=== PATIENT | female | born 1995 | race American Indian/Alaskan Native ===

== ENCOUNTER 2017-06-07 05:44 | Outpatient (CLI) | payer MEDICAID ==
[2017-06-07] MEDS ORDERED: LACTATED RINGERS 500 ML IV ONE (06:12)
[2017-06-07 06:42] LABS: Bacteria,Urine 1+ /HPF (Negative); Bilirubin,Urine NEG (Negative); Blood,Urine NEG (Negative); Ketones,Urine NEG (Negative); Leukocyte Esterase,Urine TR (Negative); Mucus,Urine FEW /HPF; Nitrite,Urine NEG (Negative); Protein,Urine <15 mg/dL mg/dL (Negative); Urobilinogen,Urine < 2.0 mg/dL (<2.0)
[2017-06-07] MEDS ORDERED: VISTARIL PO ONE (06:59)
[2017-06-07] MEDS ORDERED: TYLENOL PO ONE (07:09)
== END 2017-06-07 07:26 | disposition home or self-care (01) ==
LOC: TRG 05:44
PROVIDERS: ATTEND Obstetrics & Gynecology
DX: O47.03 False labor before 37 completed weeks of gestation, third trimester (principal); Z3A.36 36 weeks gestation of pregnancy
CPT/HCPCS: 59025; 81001

== ENCOUNTER 2017-06-16 21:17 | Outpatient (CLI) | payer MEDICAID ==
[2017-06-16 21:49] VITALS: BP 116/64
[2017-06-16] MEDS ORDERED: TYLENOL PO ONE (22:06)
[2017-06-16] MEDS ORDERED: VISTARIL PO ONE (22:07)
== END 2017-06-16 22:30 | disposition home or self-care (01) ==
LOC: TRG 21:17
PROVIDERS: ATTEND Obstetrics & Gynecology
DX: O47.1 False labor at or after 37 completed weeks of gestation (principal); Z3A.37 37 weeks gestation of pregnancy
CPT/HCPCS: 59025; Q0177

== ENCOUNTER 2017-06-27 04:04 | Inpatient (IN) | payer MEDICAID ==
[2017-06-27] MEDS ORDERED: LACTATED RINGERS 1,000 ML ONE (04:12)
[2017-06-27] MEDS ORDERED: SUBLIMAZE IV PRN ×2 (04:40→04:51)
[2017-06-27] MEDS ORDERED: PITOCin/NS 20 UNIT/1000ML DRIP 20,000 MILLIUNITS/1,000 ML BAG IV ONE (04:46)
[2017-06-27] MEDS ORDERED: BRETHINE IVP PRN (04:51)
[2017-06-27] MEDS ORDERED: NUBAIN IV PRN (04:51)
[2017-06-27] MEDS ORDERED: POLYCILLIN/NS 2 GM/100 ML 2 GM/100 ML BAG IV ONE (04:51)
[2017-06-27] MEDS ORDERED: ePHEDrine SULFATE IV PRN (04:51)
[2017-06-27] MEDS ORDERED: STADOL IV PRN (04:51)
[2017-06-27] MEDS ORDERED: XYLOCAINE 2% INFILTRATI ONE (04:51)
[2017-06-27] MEDS ORDERED: BRETHINE SUB-Q PRN (04:51)
[2017-06-27] MEDS ORDERED: MINERAL OIL PO PRN (04:51)
[2017-06-27] MEDS ORDERED: SUBLIMAZE ONE (04:52)
[2017-06-27] MEDS ORDERED: LACTATED RINGERS 1,000 ML IV SCH (05:00)
[2017-06-27] MEDS ORDERED: PITOCin/NS 30 UNIT/500ML 30 UNITS/500 ML BAG IV SCH (05:00)
--- NOTE | 2017-06-27 05:10 | History and Physical Report ---
History of Present Illness Date of examination: 06/27/17 Date of admission: 06/27/17 04:04 History of present illness: Past History : 2 Term Births: 1 Living Children: 1 Para: 1 # 1 Delivery date: 01/24/2015 Weeks Gestation: 38.2 Delivery type: Vaginal Anesthesia type: epidural Delivery location: [facility] Sex: female weight: 5.13 Comments: SLOW TRANSITION AFTER DELIVERY Past Medical History: Reviewed history from 08/31/2014 and no changes required: Asthma Past Surgical History: Reviewed history from 08/31/2014 and no changes required: none Past Medical History Abnormal PAP: negative SUDHEER Exposure: negative Infertility: negative Uterine Anomaly: negative Uterine Surgery (not C/S): negative Other Gynecologic Problems: negative Social Hx: Patient is single [employer] Smoking History: Patient has never smoked. Infection History Partner hx. of genital herpes: no Rash, Viral, or Febrile illness since last LMP? no Varicella/Chicken Pox Status: Immunized Genetic History Congenital Heart Defect: Mom: no Dad: no Fabiola Disease: Mom: no Dad: no Thalassemia Mom: no Dad: no Neural Tube Defect Mom: no Dad: no Down's Syndrome Mom: no Dad: no Kaleb-Sachs Mom: no Dad: no Sickle Cell Disease/Trait Mom: yes Dad: no Comments: mat uncle-dz/MGM-trait Hemophilia Mom: no Dad: no Muscular Dystrophy Mom: no Dad: no Cystic Fibrosis Mom: no Dad: no Maurizio Chorea Mom: no Dad: no Mental Retardation Mom: no Dad: no Fragile X Mom: no Dad: no Other Genetic/Chromosomal Disorder Mom: no Dad: no Child w/other defect Mom: no Dad: no Enviromental Exposures Xray Exposure: no Medication, drug, or alcohol use since LMP: no Chemical/Other Exposure: no Exposure to Cat Liter: no Hx of Parvovirus (Fifth Disease): no Occupational Exposure to Children: none Current Allergies (reviewed today): No known allergies Past History - Obstetrical History Expected Date of Delivery: 07/02/17 Actual Gestation: 39 Week(s) 2 Day(s) : 3 Medications and Allergies Allergies Allergy/AdvReac Type Severity Reaction Status Date / Time No Known Allergies Allergy Verified 01/24/15 03:36 Home Medications Medication Instructions Recorded Confirmed Last Taken Type No Known Home Medications [No 01/24/15 01/24/15 Unknown History Reported Home Medications] Active Meds: Active Medications Butorphanol Tartrate (Stadol) 2 mg IV Q2H PRN PRN Reason: Pain , Severe (7-10) Ephedrine Sulfate (Ephedrine Sulfate) 10 mg IV Q2M PRN PRN Reason: Hypotension Fentanyl (Sublimaze) 100 mcg IV Q2H PRN PRN Reason: Labor Pain Ampicillin Sodium (Polycillin/Ns 1 Gm/50 Ml) 1 gm in 50 mls @ 100 mls/hr IV Q4HR MARK ANTHONY PRN Reason: Protocol Ampicillin Sodium (Polycillin/Ns 2 Gm/100 Ml) 2 gm in 100 mls @ 100 mls/hr IV ONCE ONE PRN Reason: Protocol Stop: 06/27/17 05:50 Lactated Ringer's (Lactated Ringers) 1,000 mls @ 125 mls/hr IV DIRECT MARK ANTHONY Oxytocin/Sodium Chloride (Pitocin/Ns 20 Unit/1000ml Drip) 20 units in 1,000 mls @ 125 mls/hr IV DIRECT MARK ANTHONY Oxytocin/Sodium Chloride (Pitocin/Ns 30 Unit/500ml) 30 units in 500 mls @ 1 mls /hr IV TITR MARK ANTHONY; 1 MILLIUNITS/MIN PRN Reason: Protocol Mineral Oil (Mineral Oil) 30 ml PO QHS PRN PRN Reason: Constipation Nalbuphine HCl (Nubain) 10 mg IV Q2H PRN PRN Reason: Pain, Moderate (4-6) Terbutaline Sulfate (Brethine) 0.25 mg SUB-Q ONCE PRN PRN Reason: Hyperstimulation/Hypertonicity Terbutaline Sulfate (Brethine) 0.25 mg IVP ONCE PRN PRN Reason: Hyperstimulation/Hypertonicity - Vital Signs Vital signs: Vital Signs Pulse Pulse Ox 63 92 06/27/17 04:58 06/27/17 04:58 Temp Pulse Resp BP Pulse Ox 97.6 F 61 18 118/61 93 06/27/17 05:00 06/27/17 05:07 06/27/17 05:00 06/27/17 05:00 06/27/17 05:07 - Physical Exam Genitourinary (Female): Positive: normal external genitalia, normal perenium - Obstetrical FHR: category 1 Uterine Contraction Monitor Mode: External Cervical Dilatation: 7 (per RN) Results All other labs normal. Assessment and Plan - Patient Problems (1) 39 weeks gestation of Current Visit: Yes Status: Acute (2) Group B streptococcal infection during Current Visit: No Status: Acute
[2017-06-27 05:15] LABS: Hematocrit 34.1 % (30.3-42.9); Hemoglobin 11.6 gm/dl (10.1-14.3); Mean Corpuscular HGB Conc 34 % (30-34); Mean Corpuscular Hemoglobin 29 pg (28-32); Mean Corpuscular Volume 86 fl (79-97); Platelet Count 210 K/mm3 (140-440); Red Blood Count 3.98 M/mm3 (3.65-5.03); Red Cell Distribution Width 14.7 % (13.2-15.2)
[2017-06-27] MEDS ORDERED: NARCAN 2 MG/2 ML IV PRN (06:22)
--- NOTE | 2017-06-27 06:22 | Anesthesia Consultation ---
Anesthesia Consult and Med Hx Date of service: 06/27/17 - Airway Anesthetic Teeth Evaluation: Good ROM Head & Neck: Adequate Mental/Hyoid Distance: Adequate Mallampati Class: Class II Intubation Access Assessment: Probably Good - Pulmonary Exam CTA: Yes - Cardiac Exam Cardiac Exam: RRR - Pre-Operative Health Status ASA Pre-Surgery Classification: ASA2 Proposed Anesthetic Plan: Epidural, Spinal - Pulmonary Hx Asthma: Yes COPD: No Hx Pneumonia: No - Cardiovascular System Hx Hypertension: No - Central Nervous System Hx Seizures: No Hx Psychiatric Problems: No - Endocrine Hx Renal Disease: No Hx End Stage Renal Disease: No Hx Hypothyroidism: No Hx Hyperthyroidism: No - Hematic Hx Anemia: No Hx Sickle Cell Disease: No - Other Systems Hx Alcohol Use: No - Additional Comments Anesthesia Medical History Comments: +IUP
[2017-06-27] MEDS ORDERED: fentaNYL-BUPIV 2 MCG/ML-0.125% 200 MCG/100 ML BAG EPIDURAL SCH (07:00)
[2017-06-27] MEDS: PITOCin/NS 20 UNIT/1000ML DRIP 20 UNITS/1,000 ML BAG IV SCH ×2 (07:20→08:44)
[2017-06-27] MEDS ORDERED: BENADRYL PO PRN (07:29)
[2017-06-27] MEDS ORDERED: TUCKS PAD TP PRN (07:29)
[2017-06-27] MEDS ORDERED: LANSINOH TP PRN (07:29)
[2017-06-27] MEDS ORDERED: PHENERGAN PO PRN (07:29)
[2017-06-27] MEDS ORDERED: TYLENOL PO PRN (07:29)
[2017-06-27] MEDS ORDERED: ZOFRAN IV PRN (07:29)
--- NOTE | 2017-06-27 07:45 | Procedure Note ---
OB Delivery Note - Delivery Date of Delivery: 06/27/17 [employer] Dies: CLARK LUNA Estimated blood loss: 300cc - Vaginal Delivery presentation: vertex Delivery position: OA Intrapartum events: other(please specify) (IUGR; GBS+) Delivery induction: none Delivery monitor: external FHT, external uterine Route of delivery: Delivery placenta: spontaneous Delivery cord: nuchal cord (tight; delivered then reduced; NICU in room) Episiotomy: none Delivery laceration: none Anesthesia: epidural Delivery comments: Deep variables with each CTX. Pt complete. Effective pushing X 9 min. NICU called due to IUGR and variables. live born female over intact perineum. CAN X 1 tight Reduced after delivery. Cord clamped and cut Baby passed to NICU @ warmer. Crying at delivery. Placenta and membrane del complete and intact, 3 vessel cord. Sent to pathology. Pitocin IVFs. 8/9, EBL 300, Wgt 5-14. Mom and baby remain LDR stable. - Infant A at 1 minute: 8 at 5 minutes: 9 Gender: Female (wgt 5-14)
[2017-06-27] MEDS ORDERED: SODIUM CHLORIDE FLUSH SYRINGE 10 ML IV NR (08:00)
[2017-06-27] MEDS: MOTRIN PO SCH ×3 (08:49→20:10)
[2017-06-27] MEDS ORDERED: POLYCILLIN/NS 1 GM/50 ML 1 GM/50 ML BAG IV SCH (08:53)
[2017-06-27] MEDS ORDERED: DULCOLAX PR PRN (10:00)
[2017-06-27] MEDS ORDERED: PRENATAL VITAMIN PO SCH (10:00)
[2017-06-27] MEDS: NORCO 5/325 PO PRN ×2 (13:37→21:20)
[2017-06-27 17:03] LABS: Hematocrit 31.1 % (30.3-42.9); Hemoglobin 10.5 gm/dl (10.1-14.3)
[2017-06-27] MEDS: COLACE PO SCH ×2 (17:54→21:19)
[2017-06-27] MEDS ORDERED: MILK OF MAGNESIA PO PRN (22:00)
[2017-06-28] MEDS ORDERED: BOOSTRIX IM ONE (06:00)
[2017-06-28] MEDS: MOTRIN PO SCH ×4 (07:44→23:40)
[2017-06-28] MEDS ORDERED: M-M-R II VACCINE SUB-Q ONE (10:00)
[2017-06-28] MEDS: COLACE PO SCH ×2 (10:00→23:39)
--- NOTE | 2017-06-28 10:49 | Discharge Summary ---
Providers - Providers Date of Admission: 06/27/17 04:04 Date of discharge: 06/28/17 (pt desires d/c if baby is d/c also) Attending physician: HOSSEIN REAVES Primary care physician: HOSSEIN REAVES Hospitalization Reason for admission: active labor Delivery: Episiotomy: none Laceration: none Incision: normal Other procedures: none complications: none Discharge diagnosis: IUP at term delivered baby: female Hospital course: Uncomplicated vaginal delivery Pt resting No c/o voiced. VSS FF below umb Lochia small Perineum intact. H&H drop r/t blood loss from delivery Pt is asymptomatic Doing well s/p vag delivery. P: d/c today with instructions RTO 4 weeks. RX @ d/c provided. Condition at discharge: Good Disposition: DC-01 TO HOME OR SELFCARE - Discharge Diagnoses (1) Spontaneous vaginal delivery Status: Acute Comment: RTO 4 weeks for PP care Plan - Provider Discharge Summary Activity: routine, no sex for 6 weeks, no heavy lifting 4 weeks, no strenuous exercise Diet: routine Instructions: routine Additional instructions: [] Smoking cessation referral if applicable(refer to patient education folder for contact #) [] Refer to [facility] Booklet Call your doctor immediately for: * Fever > 100.5 * Heavy vaginal bleeding ( >1 pad per hour) * Severe persistent headache * Shortness of breath * Reddened, hot, painful area to leg or breast * Drainage or odor from incision. * Keep incision clean and dry at all times and follow doctor's instructions regarding bathing/showering - Follow up plan Follow up: HOSSEIN REAVES MD [Primary Care Provider] - 07/27/17 (Congratulations and Happy New Year! Please call [phone] to schedule your visit in 4 weeks. Take medications as prescribed. Call with any concerns.)
--- NOTE | 2017-06-28 21:37 | Progress Note ---
Subjective Date of service: 06/28/17 Interval history: No anesthetic related complaints. Objective - Constitutional Vitals: Vital Signs - 12hr 06/28/17 06/28/17 06/28/17 10:10 15:42 16:00 Temperature 98.5 F 98.2 F 98.2 F Pulse Rate 62 81 70 Respiratory 18 18 22 Rate Blood Pressure 110/78 114/64 122/68 [Right] O2 Sat by Pulse 98 Oximetry - Labs CBC & Chem 7: 06/27/17 16:37
[2017-06-28] MEDS: NORCO 5/325 PO PRN (23:40)
[2017-06-29] MEDS: MOTRIN PO SCH (06:56)
[2017-06-29 13:30] VITALS: BP 107/70
== END 2017-06-29 11:59 | disposition home or self-care (01) | DRG 774 ==
LOC: LD 04:04 → OB 09:00
PROVIDERS: ADMIT Obstetrics & Gynecology; ATTEND Obstetrics & Gynecology
PROC: 10E0XZZ Delivery of Products of Conception, External Approach (ICD-10-PCS; principal; 2017-06-27)
PROC: 3E0R3BZ Introduction of Anesthetic Agent into Spinal Canal, Percutaneous Approach (ICD-10-PCS; 2017-06-27)
PROC: 00HU33Z Insertion of Infusion Device into Spinal Canal, Percutaneous Approach (ICD-10-PCS; 2017-06-27)
PROC: 3E0234Z Introduction of Serum, Toxoid and Vaccine into Muscle, Percutaneous Approach (ICD-10-PCS; 2017-06-28)
DX: O98.82 Other maternal infectious and parasitic diseases complicating childbirth (principal); O69.1XX0 Labor and delivery complicated by cord around neck, with compression, not applicable or unspecified; Z3A.39 39 weeks gestation of pregnancy; Z37.0 Single live birth; Z23 Encounter for immunization; J45.909 Unspecified asthma, uncomplicated; O99.52 Diseases of the respiratory system complicating childbirth; O36.5930 Maternal care for other known or suspected poor fetal growth, third trimester, not applicable or unspecified; B95.1 Streptococcus, group B, as the cause of diseases classified elsewhere
CPT/HCPCS: 36415; 85014; 85018; 85027; 86592; 86850; 86900; 86901; 88307; 90471; 90715; J0290; J2300; J2590; J3010; J7120